=== PATIENT | male | born 1960 | race Caucasian/White ===

== ENCOUNTER 2022-04-06 12:36 | Outpatient (CLI) | payer OTHER ==
--- NOTE | 2022-04-06 13:54 | XRay Report ---
CHEST 2 VIEWS INDICATION / CLINICAL INFORMATION: TB CLEARANCE. COMPARISON: None available. FINDINGS: SUPPORT DEVICES: None. HEART / MEDIASTINUM: No significant abnormality. LUNGS / PLEURA: No significant pulmonary or pleural abnormality. No pneumothorax. ADDITIONAL FINDINGS: No significant additional findings. IMPRESSION: 1. No acute findings. No findings to suggest pulmonary tuberculosis. Signer Name: Jhon Lyons Jr, MD Signed: 04/06/2022 1:49 PM Workstation Name: [id number]
== END 2022-04-06 12:37 | disposition home or self-care (01) ==
LOC: XRAY 12:36
PROVIDERS: ATTEND Psychiatry & Neurology Psychiatry
DX: N40.0 Benign prostatic hyperplasia without lower urinary tract symptoms (principal); E78.5 Hyperlipidemia, unspecified; H52.4 Presbyopia; L98.8 Other specified disorders of the skin and subcutaneous tissue; M22.90 Unspecified disorder of patella, unspecified knee; Z79.899 Other long term (current) drug therapy
CPT/HCPCS: 71046